=== PATIENT | female | born 1930 | race Caucasian/White ===

== ENCOUNTER 2019-10-02 08:13 | Emergency (ER) | payer OTHER ==
[2019-10-02 08:20] VITALS: BP 172/75; PULSE 90; TEMP 98.3; BMI 29.2
--- NOTE | 2019-10-02 08:34 | PDOC ---
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 She made a normal bowel movement which are usually soft and brown, noticed blood upon wiping. Patient denies bright red blood per rectum or blood filling the toilet bowl, melena, tarry stools. No abdominal pain. Patient admits to having history of occasional rectal bleeding x50 years, patient notes occasionally she notices blood on wiping and has been attributed previously to anal fissures Denies fever, chills, chest pain, SOB, palpitation, dizziness, weakness, N, V, D , bladder and bowel problems, No sick contacts or travel. No new changes in medications. No suspicious food intake. No prior history of colonoscopy. no anticoagulant use. Allergies: None Past Medical History/PSH: as above Social history: Lives with family. No tobacco, ETOH or drug use. Meds: as documented in EMR Family history: noncontributory PMD: Dr. Marcial Review of systems Constitutional: no fevers or chills. No weakness HEENT: no headache or dizziness. No congestion. No visual/hearing disturbances. CVS: no cp or syncope. Resp: no sob. No cough. Gastrointestinal: no abdominal pain, nausea, vomiting, diarrhea. No constipation. Rectal bleeding Genitourinary: no urinary sx, hematuria. MUSCULOSKELETAL: No joint pain and swelling. No neck or back pain. SKIN: no redness or skin changes, no discharge, no rash. No wounds. Hematologic: no easy bruising/bleeding. NEUROLOGIC: No headache, dizziness, LOC or altered mental status. No weakness, numbness or tingling. Psych: no anxiety or depression Allergic/Immunologic: no allergies All other systems reviewed and negative, or as documented in HPI. Physical exam General: Well appearing, awake and alert, NAD. HEENT: NCAT, PERRL, EOMI, clear conjunctiva, anicteric, moist mucus membranes, clear oropharynx, no oral lesions.. Neck: neck supple, FROM Resp: CTAB, normal and even respirations, no respiratory distress CVS: RRR, no murmurs, 2+ peripheral pulses throughout, no peripheral edema Abdomen: soft, NTND, no rebound or guarding. Rectal exam: no gross blood, soft brown stools noted, no tenderness, no masses or viable tissue noted. External skin tags noted at 3 to 5 o'clock position nonthrombosed and nonbleeding Back: nontender, normal inspection and ROM MSK: no edema, NORIEGA x4, ROM intact. No clubbing or cyanosis. normal bulk and tone. Extremities: no calf tenderness Neuro: alert, oriented appropriately; no focal neurologic deficits Psych: Calm and cooperative Skin: warm and well perfused, cap refill <2 sec, normal color, no rash or skin discoloration. 10/02/19 08:40 Past History - Past Medical History Allergies/Adverse Reactions: Allergies Allergy/AdvReac Type Severity Reaction Status Date / Time No Known Allergies Allergy Unverified 10/02/19 08:20 Home Medications: Ambulatory Orders Alendronate Sodium [Fosamax] 1 tab PO WEEKLY 10/02/19 Aspirin [Aspirin EC] 81 mg PO DAILY 10/02/19 Atorvastatin Calcium 1 tab PO DAILY 10/02/19 Brinzolamide/Brimonidine Tart [Simbrinza 1%-0.2% Eye Drops] 1 drop OU BID Levothyroxine [Synthroid -] 1 tab PO DAILY 10/02/19 Quinapril HCl 40 mg PO DAILY 10/02/19 CVA: Yes COPD: Yes HTN: Yes Hypercholesterolemia: Yes Other medical history: GLAUCOMA, BLIND IN LEFT EYE - Psycho Social/Smoking Cessation Hx Smoking History: Former smoker Have you smoked in the past 12 months: No If you are a former smoker, when did you quit?: 2.5 YEARS Information on smoking cessation initiated: No Hx Alcohol Use: Yes (RARE) Drug/Substance Use Hx: No *Physical Exam - Vital Signs Last Vital Signs Temp Pulse Resp BP Pulse Ox 98.3 F 90 16 172/75 H 95 10/02/19 08:14 10/02/19 08:14 10/02/19 08:14 10/02/19 08:14 10/02/19 08:14 Medical Decision Making - Medical Decision Making 10/02/19 08:40 Vital Signs Temp Pulse Resp BP Pulse Ox 98.3 F 90 16 172/75 H 95 10/02/19 08:14 10/02/19 08:14 10/02/19 08:14 10/02/19 08:14 10/02/19 08:14 DDX rectal bleeding: UGIB vs LGIB, diverticular bleed, AVM, polyp, brisk UGIB, PUD/duodenal ulcer, anemia, electrolyte/metabolic derangements, ischemic colitis , hemorrhagic colitis, mesenteric ischemia. Zita hunt tear, doubt Borhaave s. VS reviewed, mildly hypertensive, but anxious. no tachycardia. no fever. nontoxic appearing. The patient appears comfortable and states that pain is improved. rectal exam unremarkable, +external skin tags. no sig bleeding, no tenderness, no masses. no e/o dark tarry stools, no melena. soft brown stool noted Tolerating oral intake. Vital signs reviewed and are normal. no suggestive findings for acute abdominal process or sig GIB at this time. All diagnostics tests reviewed and discussed with the patient. Pt to be discharged in stable condition. Patient and family made aware of clinical impression, treatment recommendations and disposition plan, return precautions discussed (including but not limited to new or persistent/worsening symptoms, pain, fevers, or signs of infection, chest pain, respiratory distress , inability to tolerate oral intake, dehydration, syncope, or neurologic changes , tarry or black stools, BRBPR). Follow up with PMD and/or GI specialist as recommended, follow up information provided, take medications as instructed for duration of time. continue with supportive care, avoid triggers and precipitants. All questions answered to patient's satisfaction and expressed understanding and comfort with this. At the time of discharge, the patient is alert, clinically improved, tolerating po and verbalizes understanding of instructions, satisfied with the care received and felt comfortable with the plan. Patient does not suffer from an acute life-threatening medical condition at this time and is safe for outpatient follow-up. Discharge - Discharge Information Problems reviewed: Yes Clinical Impression/Diagnosis: Rectal bleeding, Skin tags, anus or rectum Condition: Stable Disposition: HOME - Admission No - Follow up/Referral Referrals: Jt Ortiz DO [Staff Physician] - Jose Field MD [Staff Physician] - Ryder Archibald MD [Staff Physician] - - Patient Discharge Instructions Patient Printed Discharge Instructions: DI for Rectal Bleeding Additional Instructions: 1) Please follow-up with your primary care doctor in the next 1-2 days. Please call tomorrow for for any urgent issues. mender hand followup recommended, given referrals. 2) If you have any worsening of symptoms or any other concerns please return to the ED immediately. Return if worsening symptoms including rectal bleeding, tarry stools, black stools, bright red blood per rectum filling up the toilet bowl, persistent uncontrollable bleeding, fevers, headache, vomiting, visual or hearing disturbances, abdominal pain, chest pain, shortness of breath, syncope, dehydration, inability to take things by mouth/vomiting, altered mental status, or worsening concerning symptoms. 4) Please continue taking your home medications as directed. Stay well hydrated and rest adequately. Make an appointment. If you cannot follow-up with your primary care doctor please return to the ED - Post Discharge Activity
== END 2019-10-02 08:51 | disposition home or self-care (01) ==
LOC: FER 08:13
DX: K62.5 Hemorrhage of anus and rectum (principal); D23.9 Other benign neoplasm of skin, unspecified; Z86.73 Personal history of transient ischemic attack (TIA), and cerebral infarction without residual deficits; J44.9 Chronic obstructive pulmonary disease, unspecified; I10 Essential (primary) hypertension; E78.00 Pure hypercholesterolemia, unspecified; H40.9 Unspecified glaucoma
CPT/HCPCS: 99283-25

== ENCOUNTER 2020-10-07 11:50 | Inpatient (IN) | payer OTHER ==
[2020-10-07] MEDS ORDERED: ALBUTEROL SO4 2.5/IPRATROPIUM 0.5 INH SOL 3 ML VIAL.NEB. NEB ONE ×2 (12:48→13:01)
[2020-10-07 13:10] LABS: ACTIVATED PTT 23.8 SECONDS (25.2-36.5); ALBUMIN 4.1 g/dl (3.4-5.0); BILIRUBIN,TOTAL 0.6 mg/dl (0.2-1); CALCIUM 8.9 mg/dl (8.5-10); CREATININE 1.3 mg/dl (0.55-1.3); POTASSIUM 4.1 mmol/L (3.5-5.1); TOT PROT 7.2 g/dl (6.4-8.2)
[2020-10-07 13:14] LABS: INR 1.11 (0.82-1.09); PROTHROMBIN TIME (PATIENT) 12.3 SEC (10.2-13.0)
[2020-10-07 13:15] LABS: BASO % 1.1 % (0-2.0); EOS % 0.7 % (0-4.5); HEMATOCRIT 39.7 % (32.4-45.2); HEMOGLOBIN 12.9 GM/dl (10.7-15.3); LYMPH % 9.5 % (8-40); MCH 31.8 pg (25.7-33.7); MCHC 32.6 g/dl (32.0-36.0); MEAN CELL VOLUME 97.5 fl (80-96); MEAN PLT VOLUME 8.2 fl (7.5-11.1); MONO % 4.3 % (3.8-10.2); NEUT % 84.4 % (42.8-82.8); PLATELET COUNT 287 K/MM3 (134-434); RBC 4.07 M/mm3 (3.60-5.2); RDW 15.7 % (11.6-15.6); WHITE BLOOD COUNT 11.6 K/mm3 (4.0-10.8)
[2020-10-07] MEDS ORDERED: DEXAMETHASONE SOD PHOSPHATE 10 MG/1 ML VIAL IVPUSH ONE (15:47)
[2020-10-07] MEDS ORDERED: DEXAMETHASONE SOD PHOSPHATE 10 MG/1 ML VIAL ONE (15:54)
[2020-10-07] MEDS: HEPARIN NA (PORCINE) 5,000 UNITS/ML 1ML VIAL SQ SCH (21:11)
[2020-10-07 22:09] VITALS: BMI 29.6
[2020-10-08] MEDS ORDERED: ALBUTEROL SO4 2.5/IPRATROPIUM 0.5 INH SOL 3 ML VIAL.NEB. NEB PRN (02:01)
[2020-10-08] MEDS: LEVOTHYROXINE NA 88 MCG TABLET (FP) PO SCH (06:49)
[2020-10-08 09:05] LABS: BILIRUBIN,TOTAL 0.4 mg/dl (0.2-1); CREATININE 1.2 mg/dl (0.55-1.3); POTASSIUM 4.5 mmol/L (3.5-5.1); TOT PROT 7.2 g/dl (6.4-8.2)
[2020-10-08 09:08] LABS: BASO % 0.2 % (0-2.0); HEMATOCRIT 37.9 % (32.4-45.2); HEMOGLOBIN 12.5 GM/dL (10.7-15.3); LYMPH % 6.4 % (8-40); MCH 31.7 pg (25.7-33.7); MEAN CELL VOLUME 96.1 fl (80-96); MEAN PLT VOLUME 8.2 fl (7.5-11.1); NEUT % 91.4 % (42.8-82.8); PLATELET COUNT 313 K/MM3 (134-434); RBC 3.94 M/mm3 (3.60-5.2); RDW 15.8 % (11.6-15.6); WHITE BLOOD COUNT 9.1 K/mm3 (4.0-10.0)
[2020-10-08] MEDS ORDERED: PT OWN MED DRAWER 7, Y5N ONE ×2 (09:38→21:10)
[2020-10-08] MEDS: methylPREDNISolone NA SUCC 40 MG/1 ML VIAL IVPUSH SCH (09:50)
[2020-10-08] MEDS: ASPIRIN COATED 81 MG TABLET.EC PO SCH (09:50)
[2020-10-08] MEDS: HEPARIN NA (PORCINE) 5,000 UNITS/ML 1ML VIAL SQ SCH ×2 (09:50→21:27)
[2020-10-08] MEDS: ATROPINE SO4 1% OPHTH SOLN 5 ML BOTTLE OS SCH (09:51)
[2020-10-08] MEDS: ATORVASTATIN CA 10 MG TABLET (FP) PO SCH (09:51)
[2020-10-08] MEDS: BRIMONIDINE TARTRATE 0.1% OPHTHALMIC 5 ML BOTTLE OS SCH ×2 (09:51→22:36)
[2020-10-08] MEDS: QUINAPRIL HCL 5 MG TABLET PO SCH (09:51)
[2020-10-08] MEDS: prednisoLONE ACETATE 1% OPHTH SUSP 5 ML BOTTLE OS SCH ×2 (09:52→21:27)
[2020-10-08] MEDS ORDERED: TRIAMTERENE AND HCTZ - 37.5 MG/25 MG CAPSULE PO SCH (10:00)
[2020-10-08] MEDS ORDERED: PATIENT'S OWN MEDICATION (NON-FORMULARY) (Brinzolamide/Brimonidine Tart [Simbrinza 1%-0.2% OU SCH (10:00)
[2020-10-08] MEDS ORDERED: QUINAPRIL HCL 40 MG TABLET PO SCH (10:00)
[2020-10-08 10:10] LABS: PLATELET ESTIMATE NORMAL
[2020-10-08] MEDS ORDERED: ALBUTEROL SO4 2.5/IPRATROPIUM 0.5 INH SOL 3 ML VIAL.NEB. NEB SCH ×2 (12:30→13:30)
[2020-10-08] MEDS: ALBUTEROL SO4 2.5/IPRATROPIUM 0.5 INH SOL 3 ML VIAL.NEB. NEB SCH ×2 (14:59→21:27)
[2020-10-09] MEDS: ALBUTEROL SO4 2.5/IPRATROPIUM 0.5 INH SOL 3 ML VIAL.NEB. NEB SCH ×2 (06:36→10:07)
[2020-10-09] MEDS: LEVOTHYROXINE NA 88 MCG TABLET (FP) PO SCH (06:43)
[2020-10-09] MEDS: ASPIRIN COATED 81 MG TABLET.EC PO SCH (10:02)
[2020-10-09] MEDS: ATORVASTATIN CA 10 MG TABLET (FP) PO SCH (10:02)
[2020-10-09] MEDS: QUINAPRIL HCL 5 MG TABLET PO SCH (10:02)
[2020-10-09] MEDS: HEPARIN NA (PORCINE) 5,000 UNITS/ML 1ML VIAL SQ SCH ×2 (10:03→10:14)
[2020-10-09] MEDS: methylPREDNISolone NA SUCC 40 MG/1 ML VIAL IVPUSH SCH (10:04)
[2020-10-09] MEDS: ATROPINE SO4 1% OPHTH SOLN 5 ML BOTTLE OS SCH (10:15)
[2020-10-09] MEDS: BRIMONIDINE TARTRATE 0.1% OPHTHALMIC 5 ML BOTTLE OS SCH (10:15)
[2020-10-09] MEDS: prednisoLONE ACETATE 1% OPHTH SUSP 5 ML BOTTLE OS SCH (10:15)
[2020-10-09 15:52] VITALS: BP 133/48; PULSE 79; TEMP 99.7
[2020-10-09] MEDS ORDERED: ALBUTEROL SO4 2.5/IPRATROPIUM 0.5 INH SOL 3 ML VIAL.NEB. NEB SCH (20:00)
== END 2020-10-09 19:45 | disposition home or self-care (01) | DRG 189 ==
LOC: FER 11:50 → FM/S 20:12
PROVIDERS: ADMIT Internal Medicine; ATTEND Nurse Practitioner Acute Care
DX: J96.01 Acute respiratory failure with hypoxia (principal); J44.1 Chronic obstructive pulmonary disease with (acute) exacerbation; I27.20 Pulmonary hypertension, unspecified; E03.9 Hypothyroidism, unspecified; I10 Essential (primary) hypertension; E78.5 Hyperlipidemia, unspecified; H40.9 Unspecified glaucoma; Z86.73 Personal history of transient ischemic attack (TIA), and cerebral infarction without residual deficits; Z87.891 Personal history of nicotine dependence
CPT/HCPCS: 36415; 71045-TC-FY; 71250-TC; 71275-TC; 80053; 81003; 81015; 82550; 82728; 83605; 84484; 85025; 85379; 85610; 85730; 86140; 87040; 87086; 93005; 93306-TC; 93880-TC; 94640; 97116-GP; 97162-GP; 99285-25; C9803; J1100; J1644; Q9967; U0003